=== PATIENT | male | born 1975 | race Native Hawaiian/Other Pacific Islander ===

== ENCOUNTER 2017-12-16 16:42 | Emergency (ER) | payer OTHER ==
[~2017-12-16] VITALS: Ht 182.9 cm; Wt 81.6 kg
[~2017-12-16 16:42] MED LIST: A-HYDROCORT100 MG IJ; LISI20TA11 PO; NORCO 10/325***1 TAB PO; OMEP20CA PO
[2017-12-16 17:17] LABS: PLATELET COUNT 346 K/uL (142-355)
[2017-12-16 17:28] LABS: POTASSIUM 4.1 mmol/L (3.6-5.2)
[2017-12-16 23:03] VITALS: BP 152/72; TEMP 98.1
== END 2017-12-16 23:04 | disposition home or self-care (01) ==
LOC: ED 16:42
DX: K52.9 Noninfective gastroenteritis and colitis, unspecified (principal)
CPT/HCPCS: 36415; 80053; 85027; 96365; 96367; 96375; 96376; 99284; J2175; J2405; J2550; J7120; Q9963

== ENCOUNTER 2018-11-20 15:38 | Outpatient (CLI) | payer OTHER | END 2018-11-20 19:27 | disposition home or self-care (01) | LOC: RAD 15:38 | DX: G89.29 Other chronic pain (principal); K50.90 Crohn's disease, unspecified, without complications; I10 Essential (primary) hypertension ==